=== PATIENT | male | born 1995 | race Caucasian/White ===

== ENCOUNTER 2017-05-22 18:09 | Emergency (ER) | payer MEDICAID, OTHER ==
[~2017-05-22] VITALS: Ht 175.3 cm; Wt 70.0 kg
[~2017-05-22 18:09] MED LIST: ALBU2SYR PO; TEMA15CA5 PO
[2017-05-22] MEDS ORDERED: FLUO-123 PO (18:13)
[2017-05-22] MEDS ORDERED: SERT25TA PO (18:13)
[2017-05-22] MEDS ORDERED: KETOROLAC 30MG/ML VIAL IM ONE (19:30)
[2017-05-22] MEDS ORDERED: IBUPROFEN 600MG TABLET PO ONE (20:15)
[2017-05-22 22:05] VITALS: BP 100/62
== END 2017-05-22 22:35 | disposition home or self-care (01) ==
LOC: ER 18:13
DX: S43.402A Unspecified sprain of left shoulder joint, initial encounter (principal); M25.512 Pain in left shoulder; F17.200 Nicotine dependence, unspecified, uncomplicated; F15.10 Other stimulant abuse, uncomplicated; Y08.89XA Assault by other specified means, initial encounter; Y93.89 Activity, other specified; Y92.89 Other specified places as the place of occurrence of the external cause; Y99.8 Other external cause status
CPT/HCPCS: 73030; 99284; J1885; A4565

== ENCOUNTER 2017-05-26 04:12 | Emergency (ER) | payer MEDICAID, OTHER ==
[~2017-05-26] VITALS: Ht 165.1 cm; Wt 69.0 kg
[~2017-05-26 04:12] MED LIST changes: +FLUO-123 PO; +SERT25TA PO
[2017-05-26] MEDS ORDERED: SODIUM CHLORIDE 0.9% 1,000 ML IV ONE (04:58)
[2017-05-26] MEDS ORDERED: FENTANYL CITRATE/PF 50MCG/ML 2ML VIAL IV ONE (05:00)
[2017-05-26] MEDS ORDERED: ONDANSETRON HCL 4MG/2ML VIAL ONE (05:06)
[2017-05-26] MEDS ORDERED: FENTANYL CITRATE/PF 50MCG/ML 2ML VIAL ONE (05:06)
[2017-05-26] MEDS ORDERED: ETOMIDATE 2MG/ML 10ML VIAL IV ONE (05:30)
[2017-05-26 06:44] VITALS: BP 145/76
== END 2017-05-26 06:45 | disposition home or self-care (01) ==
LOC: ER 04:12
DX: M24.412 Recurrent dislocation, left shoulder (principal); F17.200 Nicotine dependence, unspecified, uncomplicated; F12.10 Cannabis abuse, uncomplicated; Y04.0XXA Assault by unarmed brawl or fight, initial encounter; Y93.89 Activity, other specified; Y92.89 Other specified places as the place of occurrence of the external cause; Y99.8 Other external cause status
CPT/HCPCS: 23650; 73030; 96361; 96374; 99285; J2405; J3010; J3490; Z7610; A4565; J7030; L3670

== ENCOUNTER 2017-09-14 12:59 | Emergency (ER) | payer MEDICAID ==
[~2017-09-14] VITALS: Ht 170.2 cm; Wt 73.0 kg
[2017-09-14] MEDS ORDERED: FENTANYL CITRATE/PF 50MCG/ML 2ML VIAL IV ONE (15:15)
[2017-09-14 15:33] VITALS: BP 122/78
== END 2017-09-14 16:45 | disposition home or self-care (01) ==
LOC: ER 13:01
DX: M24.412 Recurrent dislocation, left shoulder (principal); F32.9 Major depressive disorder, single episode, unspecified; J45.909 Unspecified asthma, uncomplicated; F17.200 Nicotine dependence, unspecified, uncomplicated; F12.10 Cannabis abuse, uncomplicated
CPT/HCPCS: 23650; 73030; 96374; 99284; J3010; L3670

== ENCOUNTER 2018-06-13 09:59 | Emergency (ER) | payer MEDICAID ==
[~2018-06-13] VITALS: Ht 170.2 cm; Wt 70.0 kg
[~2018-06-13 09:59] MED LIST changes: -ALBU2SYR PO; +ALBU2SYR3 PO
[2018-06-13 11:45] VITALS: BP 116/62
[2018-06-13] MEDS ORDERED: IBUPROFEN 400MG TABLET PO ONE (11:45)
[2018-06-13] MEDS ORDERED: HYDROCODONE/ACETAMINOPHEN 5/325MG TABLET PO ONE (11:45)
== END 2018-06-13 14:20 | disposition home or self-care (01) ==
LOC: ER 09:59
DX: S52.021A Displaced fracture of olecranon process without intraarticular extension of right ulna, initial encounter for closed fracture (principal); Y08.89XA Assault by other specified means, initial encounter; Y93.89 Activity, other specified; Y92.89 Other specified places as the place of occurrence of the external cause
CPT/HCPCS: 29105; 73060; 73080; 99284; A4565

== ENCOUNTER 2019-01-02 21:39 | Emergency (ER) | payer MEDICAID ==
[~2019-01-02] VITALS: Ht 177.8 cm; Wt 61.0 kg
[2019-01-02 21:57] VITALS: BP 107/63
== END 2019-01-03 | disposition left against medical advice (07) ==
LOC: ER 21:39
DX: Z53.21 Procedure and treatment not carried out due to patient leaving prior to being seen by health care provider (principal)

== ENCOUNTER 2019-01-13 08:32 | Emergency (ER) | payer MEDICAID ==
[~2019-01-13] VITALS: Ht 170.2 cm; Wt 57.0 kg
[2019-01-13 10:02] VITALS: BP 122/65
== END 2019-01-13 10:09 | disposition home or self-care (01) ==
LOC: ER 08:32
DX: M25.512 Pain in left shoulder (principal); F12.10 Cannabis abuse, uncomplicated; F14.10 Cocaine abuse, uncomplicated; F15.10 Other stimulant abuse, uncomplicated; F20.9 Schizophrenia, unspecified; F31.9 Bipolar disorder, unspecified; Z79.899 Other long term (current) drug therapy
CPT/HCPCS: 99283

== ENCOUNTER 2019-01-16 19:14 | Emergency (ER) | payer MEDICAID ==
[~2019-01-16] VITALS: Ht 167.6 cm; Wt 60.0 kg
[2019-01-17] MEDS: RISPERIDONE 1MG TABLET PO SCH (00:21)
[2019-01-17 00:48] LABS: BASOPHILS % 0.6 % (0.0-2.0); EOSINOPHILS % 5.2 % (0.0-5.0); HEMATOCRIT. 40.4 % (42.0-52.0); LYMPHOCYTES % 26.5 % (20.0-50.0); MEAN CORPUSCULAR HEMOGLOBIN 31.2 pg (28.0-32.0); MEAN CORPUSCULAR VOLUME 90.2 fL (80.0-94.0); MONOCYTES % 11.4 % (2.0-8.0); NEUTROPHILS % 56.3 % (40.0-76.0); PLATELET 182 x1000/uL (130-400); RED BLOOD CELL COUNT 4.48 mill/uL (4.7-6.1); RED CELL DISTRIBUTION WIDTH 13.7 % (11.6-14.6)
[2019-01-17 00:52] LABS: CHLORIDE 111 mEq/L (98-107)
[2019-01-17 00:55] LABS: CLARITY URINE CLEAR (CLEAR); COLOR URINE YELLOW (YELLOW); KETONES URINE TRACE (NEGATIVE); LEUKOCYTE ESTERASE URINE NEGATIVE (NEGATIVE); NITRITE URINE NEGATIVE (NEGATIVE); OCCULT BLOOD URINE NEGATIVE (NEGATIVE); PROTEIN URINE NEGATIVE (NEGATIVE); SPECIFIC GRAVITY URINE 1.031 (1.005-1.030); UROBILINOGEN URINE 0.2 E.U./dL (0.2-1.0)
[2019-01-17 00:57] LABS: ETHANOL BLOOD < 10 mg/dL
[2019-01-17 01:06] LABS: *AMPHETAMINES SCREEN URINE NEGATIVE (NEGATIVE); *BARBITURATES SCREEN URINE NEGATIVE (NEGATIVE); *BENZODIAZEPINES SCREEN URINE NEGATIVE (NEGATIVE); *COCAINE SCREEN URINE NEGATIVE (NEGATIVE); METHADONE URINE SCREEN NEGATIVE (NEGATIVE); OPIATES URINE SCREEN NEGATIVE (NEGATIVE); PHENCYCLIDINE URINE SCREEN NEGATIVE (NEGATIVE)
[2019-01-17 01:08] LABS: CANNABINOID URINE SCREEN PRESUMTIVE POSITIVE (NEGATIVE)
[2019-01-17 08:10] VITALS: BP 124/73
== END 2019-01-17 10:31 | disposition left against medical advice (07) ==
LOC: ER 19:14
DX: F23 Brief psychotic disorder (principal); F31.9 Bipolar disorder, unspecified; F12.10 Cannabis abuse, uncomplicated; F15.10 Other stimulant abuse, uncomplicated; F14.10 Cocaine abuse, uncomplicated; Z79.899 Other long term (current) drug therapy
CPT/HCPCS: 36415; 80305; 80320; 99284; G0480

== ENCOUNTER 2019-01-23 23:47 | Emergency (ER) | payer MEDICAID ==
[~2019-01-23] VITALS: Ht 167.6 cm; Wt 57.0 kg
[2019-01-24 08:49] LABS: BASOPHILS % 0.4 % (0.0-2.0); EOSINOPHILS % 4.5 % (0.0-5.0); HEMATOCRIT. 40.5 % (42.0-52.0); HEMOGLOBIN. 13.8 g/dL (14.0-18.0); LYMPHOCYTES % 31.6 % (20.0-50.0); MEAN CORPUSCULAR HEMOGLOBIN 30.6 pg (28.0-32.0); MEAN CORPUSCULAR VOLUME 89.8 fL (80.0-94.0); MEAN PLATELET VOLUME 7.8 fl (7.4-10.4); MONOCYTES % 9.2 % (2.0-8.0); NEUTROPHILS % 54.3 % (40.0-76.0); PLATELET 217 x1000/uL (130-400); RED BLOOD CELL COUNT 4.51 mill/uL (4.7-6.1); RED CELL DISTRIBUTION WIDTH 13.6 % (11.6-14.6)
[2019-01-24 08:53] LABS: CHLORIDE 110 mEq/L (98-107)
[2019-01-24 10:07] LABS: CLARITY URINE CLEAR (CLEAR); COLOR URINE YELLOW (YELLOW); KETONES URINE NEGATIVE (NEGATIVE); LEUKOCYTE ESTERASE URINE NEGATIVE (NEGATIVE); NITRITE URINE NEGATIVE (NEGATIVE); OCCULT BLOOD URINE NEGATIVE (NEGATIVE); PH URINE 5.5 (4.5-8.0); PROTEIN URINE NEGATIVE (NEGATIVE); SPECIFIC GRAVITY URINE 1.035 (1.005-1.030); UROBILINOGEN URINE 0.2 E.U./dL (0.2-1.0)
[2019-01-24 10:21] LABS: *BARBITURATES SCREEN URINE NEGATIVE (NEGATIVE); CANNABINOID URINE SCREEN PRESUMTIVE POSITIVE (NEGATIVE); OPIATES URINE SCREEN NEGATIVE (NEGATIVE); PHENCYCLIDINE URINE SCREEN NEGATIVE (NEGATIVE)
[2019-01-24 10:22] LABS: *AMPHETAMINES SCREEN URINE NEGATIVE (NEGATIVE); *BENZODIAZEPINES SCREEN URINE NEGATIVE (NEGATIVE); *COCAINE SCREEN URINE NEGATIVE (NEGATIVE)
[2019-01-24 10:25] LABS: METHADONE URINE SCREEN NEGATIVE (NEGATIVE)
[2019-01-24 18:00] VITALS: BP 126/69
== END 2019-01-24 20:27 | disposition home or self-care (01) ==
LOC: ER 23:47
DX: F20.9 Schizophrenia, unspecified (principal); F31.9 Bipolar disorder, unspecified; F14.10 Cocaine abuse, uncomplicated; F15.10 Other stimulant abuse, uncomplicated; F12.10 Cannabis abuse, uncomplicated; F17.210 Nicotine dependence, cigarettes, uncomplicated
CPT/HCPCS: 36415; 80048; 80305; 99285

== ENCOUNTER 2019-02-03 06:37 | Emergency (ER) | payer MEDICAID ==
[~2019-02-03] VITALS: Ht 175.3 cm; Wt 61.0 kg
[2019-02-03] MEDS ORDERED: KETOROLAC 30MG/ML VIAL IM ONE (07:45)
[2019-02-03 08:50] VITALS: BP 129/86
== END 2019-02-03 09:01 | disposition home or self-care (01) ==
LOC: ER 06:37
DX: K08.89 Other specified disorders of teeth and supporting structures (principal); F12.10 Cannabis abuse, uncomplicated; F14.10 Cocaine abuse, uncomplicated; F15.10 Other stimulant abuse, uncomplicated; F31.9 Bipolar disorder, unspecified; F20.9 Schizophrenia, unspecified
CPT/HCPCS: 96372; 99283; J1885

== ENCOUNTER 2019-03-02 21:02 | Emergency (ER) | payer MEDICAID ==
[~2019-03-02] VITALS: Ht 170.2 cm; Wt 57.0 kg
[2019-03-02] MEDS ORDERED: SODIUM CHLORIDE 0.9% 1,000 ML IV ONE (23:45)
[2019-03-02] MEDS ORDERED: ONDANSETRON HCL 4MG/2ML INJ IV STA (23:45)
[2019-03-03 00:17] LABS: BASOPHILS % 0.4 % (0.0-2.0); EOSINOPHILS % 2.3 % (0.0-5.0); HEMATOCRIT. 38.5 % (42.0-52.0); HEMOGLOBIN. 13.4 g/dL (14.0-18.0); LYMPHOCYTES % 33.1 % (20.0-50.0); MEAN CORPUSCULAR HEMOGLOBIN 31.6 pg (28.0-32.0); MEAN CORPUSCULAR VOLUME 90.4 fL (80.0-94.0); MEAN PLATELET VOLUME 8.5 fl (7.4-10.4); MONOCYTES % 8.6 % (2.0-8.0); NEUTROPHILS % 55.6 % (40.0-76.0); PLATELET 198 x1000/uL (130-400); RED BLOOD CELL COUNT 4.25 mill/uL (4.7-6.1); RED CELL DISTRIBUTION WIDTH 13.5 % (11.6-14.6)
[2019-03-03 00:23] LABS: CHLORIDE 109 mEq/L (98-107)
[2019-03-03 00:27] LABS: ETHANOL BLOOD < 10 mg/dL
[2019-03-03 00:31] LABS: CREATINE KINASE 465 IU/L (39-308)
[2019-03-03 00:33] LABS: CLARITY URINE CLEAR (CLEAR); COLOR URINE YELLOW (YELLOW); KETONES URINE NEGATIVE (NEGATIVE); LEUKOCYTE ESTERASE URINE NEGATIVE (NEGATIVE); NITRITE URINE NEGATIVE (NEGATIVE); OCCULT BLOOD URINE NEGATIVE (NEGATIVE); PH URINE 6.5 (4.5-8.0); PROTEIN URINE NEGATIVE (NEGATIVE); SPECIFIC GRAVITY URINE 1.003 (1.005-1.030); UROBILINOGEN URINE 0.2 E.U./dL (0.2-1.0)
[2019-03-03 00:34] LABS: CREATINE KINASE MB FRACTION 5.7 ng/mL (0.5-3.6)
[2019-03-03 03:12] LABS: CANNABINOID URINE SCREEN PRESUMTIVE POSITIVE (NEGATIVE)
[2019-03-03 03:13] LABS: *AMPHETAMINES SCREEN URINE NEGATIVE (NEGATIVE); *BARBITURATES SCREEN URINE NEGATIVE (NEGATIVE); *BENZODIAZEPINES SCREEN URINE NEGATIVE (NEGATIVE); *COCAINE SCREEN URINE NEGATIVE (NEGATIVE); METHADONE URINE SCREEN NEGATIVE (NEGATIVE); OPIATES URINE SCREEN NEGATIVE (NEGATIVE); PHENCYCLIDINE URINE SCREEN NEGATIVE (NEGATIVE)
[2019-03-03 05:40] VITALS: BP 111/66
== END 2019-03-03 05:41 | disposition home or self-care (01) ==
LOC: ER 21:02
DX: T40.7X1A Poisoning by cannabis (derivatives), accidental (unintentional), initial encounter (principal); G92 Toxic encephalopathy; R53.1 Weakness; Y92.89 Other specified places as the place of occurrence of the external cause; F17.200 Nicotine dependence, unspecified, uncomplicated; F14.10 Cocaine abuse, uncomplicated; F15.10 Other stimulant abuse, uncomplicated; F41.9 Anxiety disorder, unspecified; F31.9 Bipolar disorder, unspecified; F20.9 Schizophrenia, unspecified
CPT/HCPCS: 36415; 71045; 80053; 80305; 80320; 81003; 82550; 82553; 83690; 84484; 85025; 93005; 96361; 96374; 99284; J2405; J7030; G0480

== ENCOUNTER 2019-03-09 22:01 | Emergency (ER) | payer MEDICAID ==
[~2019-03-09] VITALS: Ht 170.2 cm; Wt 57.0 kg
[2019-03-10 07:52] VITALS: BP 129/70
== END 2019-03-10 07:49 | disposition home or self-care (01) ==
LOC: ER 22:01
DX: M25.512 Pain in left shoulder (principal); Z79.899 Other long term (current) drug therapy
CPT/HCPCS: 73030; 99283

== ENCOUNTER 2019-04-08 00:17 | Emergency (ER) | payer MEDICAID ==
[~2019-04-08] VITALS: Ht 170.2 cm; Wt 58.0 kg
[2019-04-08 07:25] VITALS: BP 102/59
== END 2019-04-08 08:00 | disposition left against medical advice (07) ==
LOC: ER 00:17
DX: Z76.0 Encounter for issue of repeat prescription (principal); F20.9 Schizophrenia, unspecified; F41.9 Anxiety disorder, unspecified; F12.10 Cannabis abuse, uncomplicated; F17.210 Nicotine dependence, cigarettes, uncomplicated; F31.9 Bipolar disorder, unspecified; Z59.0 Homelessness
CPT/HCPCS: 99283

== ENCOUNTER 2019-04-08 23:36 | Emergency (ER) | payer MEDICAID ==
[~2019-04-08] VITALS: Ht 165.1 cm; Wt 50.0 kg
[2019-04-09] MEDS: SERTRALINE HCL 100MG TABLET PO SCH ×2 (00:30→08:30)
[2019-04-09 00:51] LABS: BASOPHILS % 0.4 % (0.0-2.0); EOSINOPHILS % 2.1 % (0.0-5.0); HEMATOCRIT. 41.5 % (42.0-52.0); HEMOGLOBIN. 14.3 g/dL (14.0-18.0); MEAN CORPUSCULAR HEMOGLOBIN 31.1 pg (28.0-32.0); MEAN CORPUSCULAR VOLUME 89.9 fL (80.0-94.0); MEAN PLATELET VOLUME 8.3 fl (7.4-10.4); MONOCYTES % 5.8 % (2.0-8.0); NEUTROPHILS % 63.7 % (40.0-76.0); PLATELET 192 x1000/uL (130-400); RED BLOOD CELL COUNT 4.61 mill/uL (4.7-6.1); RED CELL DISTRIBUTION WIDTH 13.1 % (11.6-14.6)
[2019-04-09 01:03] LABS: CHLORIDE 108 mEq/L (98-107)
[2019-04-09 01:07] LABS: ETHANOL BLOOD < 10 mg/dL
[2019-04-09] MEDS ORDERED: POTASSIUM CHLORIDE 20MEQ TABLET SR PO ONE (01:30)
[2019-04-09 01:49] LABS: CLARITY URINE CLEAR (CLEAR); COLOR URINE YELLOW (YELLOW); KETONES URINE NEGATIVE (NEGATIVE); LEUKOCYTE ESTERASE URINE NEGATIVE (NEGATIVE); NITRITE URINE NEGATIVE (NEGATIVE); OCCULT BLOOD URINE NEGATIVE (NEGATIVE); PH URINE 5.5 (4.5-8.0); PROTEIN URINE NEGATIVE (NEGATIVE); SPECIFIC GRAVITY URINE 1.022 (1.005-1.030)
[2019-04-09 02:08] LABS: *AMPHETAMINES SCREEN URINE NEGATIVE (NEGATIVE); *BARBITURATES SCREEN URINE NEGATIVE (NEGATIVE); *BENZODIAZEPINES SCREEN URINE NEGATIVE (NEGATIVE); *COCAINE SCREEN URINE NEGATIVE (NEGATIVE)
[2019-04-09 02:09] LABS: CANNABINOID URINE SCREEN PRESUMTIVE POSITIVE (NEGATIVE); METHADONE URINE SCREEN NEGATIVE (NEGATIVE); OPIATES URINE SCREEN NEGATIVE (NEGATIVE); PHENCYCLIDINE URINE SCREEN NEGATIVE (NEGATIVE)
[2019-04-09] MEDS ORDERED: QUETIAPINE FUMARATE 50MG TABLET PO SCH (09:00)
[2019-04-09 13:56] VITALS: BP 128/82
== END 2019-04-09 14:10 | disposition home or self-care (01) ==
LOC: ER 23:36
DX: F20.9 Schizophrenia, unspecified (principal); E87.6 Hypokalemia; F41.9 Anxiety disorder, unspecified; F31.9 Bipolar disorder, unspecified; F17.200 Nicotine dependence, unspecified, uncomplicated; F15.10 Other stimulant abuse, uncomplicated; Z79.899 Other long term (current) drug therapy; Z86.59 Personal history of other mental and behavioral disorders
CPT/HCPCS: 36415; 80053; 80305; 80307; 80320; 80329; 81003; 85025; 99284; Z7610; G0480

== ENCOUNTER 2019-04-20 18:55 | Emergency (ER) | payer MEDICAID ==
[~2019-04-20] VITALS: Ht 172.7 cm; Wt 59.0 kg
[2019-04-20] MEDS ORDERED: RISP05 PO (19:01)
[2019-04-20] MEDS ORDERED: ACETAMINOPHEN 500MG TABLET PO ONE (22:45)
[2019-04-20 23:13] VITALS: BP 103/52
== END 2019-04-21 00:12 | disposition home or self-care (01) ==
LOC: ER 18:55
DX: R51 Headache (principal); F31.9 Bipolar disorder, unspecified; F20.9 Schizophrenia, unspecified; F17.200 Nicotine dependence, unspecified, uncomplicated; F14.10 Cocaine abuse, uncomplicated; F12.10 Cannabis abuse, uncomplicated; F15.10 Other stimulant abuse, uncomplicated; Z79.899 Other long term (current) drug therapy
CPT/HCPCS: 99283

== ENCOUNTER 2019-05-25 20:36 | Emergency (ER) | payer MEDICAID ==
[~2019-05-25] VITALS: Ht 170.2 cm; Wt 56.0 kg
[~2019-05-25 20:36] MED LIST changes: +RISP05 PO
[2019-05-25] MEDS ORDERED: RISPERIDONE 0.5MG TABLET PO STA (22:08)
[2019-05-25] MEDS ORDERED: ACETAMINOPHEN 325MG TABLET PO ONE (22:15)
[2019-05-25 22:19] VITALS: BP 136/60
== END 2019-05-25 22:54 | disposition home or self-care (01) ==
LOC: ER 20:36
DX: Z76.0 Encounter for issue of repeat prescription (principal); G89.29 Other chronic pain; F15.10 Other stimulant abuse, uncomplicated; F20.9 Schizophrenia, unspecified; F41.9 Anxiety disorder, unspecified; F12.10 Cannabis abuse, uncomplicated
CPT/HCPCS: 99283

== ENCOUNTER 2019-05-30 18:10 | Emergency (ER) | payer MEDICAID ==
[~2019-05-30] VITALS: Ht 167.6 cm; Wt 55.0 kg
[2019-05-30] MEDS ORDERED: SODIUM CHLORIDE 0.9% 1,000 ML IV ONE (22:11)
[2019-05-30] MEDS ORDERED: ONDANSETRON HCL 4MG/2ML INJ IV STA (22:11)
[2019-05-30] MEDS ORDERED: FAMOTIDINE 20MG/2ML VIAL IV ONE (22:15)
[2019-05-30] MEDS ORDERED: MAGNESIUM/ALUMINUM HYDROXIDE/SIMETHICONE 30ML UDC PO ONE (22:15)
[2019-05-30 22:31] LABS: BASOPHILS % 0.2 % (0.0-2.0); EOSINOPHILS % 0.5 % (0.0-5.0); HEMATOCRIT. 39.7 % (42.0-52.0); HEMOGLOBIN. 13.8 g/dL (14.0-18.0); LYMPHOCYTES % 15.6 % (20.0-50.0); MEAN CORPUSCULAR HEMOGLOBIN 30.8 pg (28.0-32.0); MEAN CORPUSCULAR VOLUME 88.3 fL (80.0-94.0); NEUTROPHILS % 76.7 % (40.0-76.0); PLATELET 222 x1000/uL (130-400); RED BLOOD CELL COUNT 4.49 mill/uL (4.7-6.1); RED CELL DISTRIBUTION WIDTH 12.9 % (11.6-14.6)
[2019-05-30 22:36] LABS: CHLORIDE 104 mEq/L (98-107)
[2019-05-30 22:40] LABS: ETHANOL BLOOD < 10 mg/dL
[2019-05-30 22:57] LABS: *AMPHETAMINES SCREEN URINE NEGATIVE (NEGATIVE); *BARBITURATES SCREEN URINE NEGATIVE (NEGATIVE); *BENZODIAZEPINES SCREEN URINE NEGATIVE (NEGATIVE); *COCAINE SCREEN URINE NEGATIVE (NEGATIVE); METHADONE URINE SCREEN NEGATIVE (NEGATIVE); OPIATES URINE SCREEN NEGATIVE (NEGATIVE)
[2019-05-30 22:59] LABS: CANNABINOID URINE SCREEN PRESUMTIVE POSITIVE (NEGATIVE); PHENCYCLIDINE URINE SCREEN NEGATIVE (NEGATIVE)
[2019-05-31 00:09] VITALS: BP 102/66
== END 2019-05-31 01:58 | disposition left against medical advice (07) ==
LOC: ER 18:10
DX: R10.13 Epigastric pain (principal); K85.90 Acute pancreatitis without necrosis or infection, unspecified; F41.9 Anxiety disorder, unspecified; F20.9 Schizophrenia, unspecified; F15.10 Other stimulant abuse, uncomplicated; F12.10 Cannabis abuse, uncomplicated; Z59.0 Homelessness
CPT/HCPCS: 36415; 76700; 80053; 80305; 80320; 83690; 84484; 85025; 96361; 96374; 96375; 99284; J2405; J3490; J7030; Z7610; G0480

== ENCOUNTER 2019-06-13 13:51 | Emergency (ER) | payer MEDICAID ==
[~2019-06-13] VITALS: Ht 175.3 cm; Wt 65.0 kg
[2019-06-13 16:00] VITALS: BP 101/60
== END 2019-06-13 16:56 | disposition home or self-care (01) ==
LOC: ER 14:03
DX: F10.229 Alcohol dependence with intoxication, unspecified (principal); F12.10 Cannabis abuse, uncomplicated; F15.10 Other stimulant abuse, uncomplicated; F41.9 Anxiety disorder, unspecified; F20.9 Schizophrenia, unspecified; F31.9 Bipolar disorder, unspecified; F17.210 Nicotine dependence, cigarettes, uncomplicated; Z79.899 Other long term (current) drug therapy; Y90.9 Presence of alcohol in blood, level not specified
CPT/HCPCS: 99283; 99406

== ENCOUNTER 2019-06-21 23:42 | Emergency (ER) | payer MEDICAID ==
[~2019-06-21] VITALS: Ht 170.2 cm; Wt 57.0 kg
[2019-06-22 00:19] VITALS: BP 102/56
== END 2019-06-22 00:30 | disposition left against medical advice (07) ==
LOC: ER 23:42
DX: Z53.21 Procedure and treatment not carried out due to patient leaving prior to being seen by health care provider (principal)

== ENCOUNTER 2019-06-22 16:07 | Emergency (ER) | payer MEDICAID ==
[~2019-06-22] VITALS: Ht 170.2 cm; Wt 57.0 kg
[2019-06-22] MEDS ORDERED: ONDANSETRON HCL 4MG/2ML INJ IV STA (23:21)
[2019-06-22] MEDS ORDERED: MAGNESIUM/ALUMINUM HYDROXIDE/SIMETHICONE 30ML UDC PO STA (23:21)
[2019-06-22] MEDS ORDERED: SODIUM CHLORIDE 0.9% 1,000 ML IV ONE (23:21)
[2019-06-22] MEDS ORDERED: FAMOTIDINE 20MG/2ML VIAL IV STA (23:21)
[2019-06-22 23:39] LABS: BASOPHILS % 0.9 % (0.0-2.0); EOSINOPHILS % 5.3 % (0.0-5.0); HEMATOCRIT. 38.2 % (42.0-52.0); LYMPHOCYTES % 36.6 % (20.0-50.0); MEAN CORPUSCULAR HEMOGLOBIN 30.6 pg (28.0-32.0); MEAN CORPUSCULAR VOLUME 89.8 fL (80.0-94.0); MEAN PLATELET VOLUME 7.8 fl (7.4-10.4); MONOCYTES % 6.6 % (2.0-8.0); NEUTROPHILS % 50.6 % (40.0-76.0); PLATELET 208 x1000/uL (130-400); RED BLOOD CELL COUNT 4.25 mill/uL (4.7-6.1); RED CELL DISTRIBUTION WIDTH 13.4 % (11.6-14.6)
[2019-06-22 23:41] LABS: CHLORIDE 110 mEq/L (98-107)
[2019-06-22 23:46] LABS: ETHANOL BLOOD < 10 mg/dL
[2019-06-22 23:53] LABS: PROTHROMBIN TIME 10.5 sec (9.6-11.0)
[2019-06-23 03:08] LABS: CLARITY URINE CLEAR (CLEAR); COLOR URINE YELLOW (YELLOW); KETONES URINE NEGATIVE (NEGATIVE); LEUKOCYTE ESTERASE URINE NEGATIVE (NEGATIVE); NITRITE URINE NEGATIVE (NEGATIVE); OCCULT BLOOD URINE NEGATIVE (NEGATIVE); PH URINE 7.5 (4.5-8.0); PROTEIN URINE NEGATIVE (NEGATIVE); SPECIFIC GRAVITY URINE 1.016 (1.005-1.030); UROBILINOGEN URINE 0.2 E.U./dL (0.2-1.0)
[2019-06-23 03:18] LABS: *AMPHETAMINES SCREEN URINE NEGATIVE (NEGATIVE); *BARBITURATES SCREEN URINE NEGATIVE (NEGATIVE); *BENZODIAZEPINES SCREEN URINE NEGATIVE (NEGATIVE); *COCAINE SCREEN URINE NEGATIVE (NEGATIVE); OPIATES URINE SCREEN NEGATIVE (NEGATIVE); PHENCYCLIDINE URINE SCREEN NEGATIVE (NEGATIVE)
[2019-06-23 03:19] LABS: CANNABINOID URINE SCREEN PRESUMTIVE POSITIVE (NEGATIVE); METHADONE URINE SCREEN NEGATIVE (NEGATIVE)
[2019-06-23 09:55] VITALS: BP 108/67
== END 2019-06-23 09:55 | disposition home or self-care (01) ==
LOC: ER 16:07
DX: K29.70 Gastritis, unspecified, without bleeding (principal); J45.909 Unspecified asthma, uncomplicated; F17.210 Nicotine dependence, cigarettes, uncomplicated; F15.10 Other stimulant abuse, uncomplicated; F12.10 Cannabis abuse, uncomplicated; F14.10 Cocaine abuse, uncomplicated; F17.200 Nicotine dependence, unspecified, uncomplicated; Z79.899 Other long term (current) drug therapy; Z59.0 Homelessness
CPT/HCPCS: 36415; 74018; 80053; 80305; 80320; 81003; 83690; 84484; 85025; 85610; 96361; 96374; 96375; 99284; 99406; J2405; J7030; Z7610; G0480

== ENCOUNTER 2019-06-24 02:12 | Emergency (ER) | payer MEDICAID ==
[~2019-06-24] VITALS: Ht 170.2 cm; Wt 57.0 kg
[2019-06-24] MEDS ORDERED: LORAZEPAM 1MG TABLET PO ONE (03:00)
[2019-06-24 03:32] LABS: CLARITY URINE CLEAR (CLEAR); COLOR URINE YELLOW (YELLOW); KETONES URINE NEGATIVE (NEGATIVE); LEUKOCYTE ESTERASE URINE NEGATIVE (NEGATIVE); NITRITE URINE NEGATIVE (NEGATIVE); OCCULT BLOOD URINE NEGATIVE (NEGATIVE); PH URINE 5.5 (4.5-8.0); PROTEIN URINE NEGATIVE (NEGATIVE); SPECIFIC GRAVITY URINE 1.017 (1.005-1.030); UROBILINOGEN URINE 0.2 E.U./dL (0.2-1.0)
[2019-06-24 03:35] LABS: BASOPHILS % 0.4 % (0.0-2.0); EOSINOPHILS % 2.8 % (0.0-5.0); HEMATOCRIT. 39.2 % (42.0-52.0); HEMOGLOBIN. 13.5 g/dL (14.0-18.0); LYMPHOCYTES % 26.8 % (20.0-50.0); MEAN CORPUSCULAR HEMOGLOBIN 30.8 pg (28.0-32.0); MEAN CORPUSCULAR VOLUME 89.7 fL (80.0-94.0); MEAN PLATELET VOLUME 8.2 fl (7.4-10.4); PLATELET 218 x1000/uL (130-400); RED BLOOD CELL COUNT 4.37 mill/uL (4.7-6.1); RED CELL DISTRIBUTION WIDTH 13.5 % (11.6-14.6)
[2019-06-24 03:38] LABS: CHLORIDE 110 mEq/L (98-107)
[2019-06-24 03:41] LABS: *AMPHETAMINES SCREEN URINE NEGATIVE (NEGATIVE); *BARBITURATES SCREEN URINE NEGATIVE (NEGATIVE); *BENZODIAZEPINES SCREEN URINE NEGATIVE (NEGATIVE); *COCAINE SCREEN URINE NEGATIVE (NEGATIVE); METHADONE URINE SCREEN NEGATIVE (NEGATIVE)
[2019-06-24 03:42] LABS: CANNABINOID URINE SCREEN PRESUMTIVE POSITIVE (NEGATIVE); OPIATES URINE SCREEN NEGATIVE (NEGATIVE); PHENCYCLIDINE URINE SCREEN NEGATIVE (NEGATIVE)
[2019-06-24 03:42] LABS: ETHANOL BLOOD < 10 mg/dL
[2019-06-24 12:00] VITALS: BP 116/80
== END 2019-06-24 12:56 | disposition home or self-care (01) ==
LOC: ER 02:12
DX: R45.851 Suicidal ideations (principal); D64.9 Anemia, unspecified; F12.90 Cannabis use, unspecified, uncomplicated; R03.0 Elevated blood-pressure reading, without diagnosis of hypertension
CPT/HCPCS: 36415; 80305; 80307; 80320; 80329; 81003; 82962; 99283; G0480

== ENCOUNTER 2019-06-24 19:52 | Emergency (ER) | payer MEDICAID ==
[~2019-06-24] VITALS: Ht 172.7 cm; Wt 58.0 kg
[2019-06-24 21:54] LABS: BASOPHILS % 0.5 % (0.0-2.0); EOSINOPHILS % 4.1 % (0.0-5.0); HEMATOCRIT. 39.2 % (42.0-52.0); HEMOGLOBIN. 13.5 g/dL (14.0-18.0); LYMPHOCYTES % 24.6 % (20.0-50.0); MEAN CORPUSCULAR HEMOGLOBIN 30.6 pg (28.0-32.0); MEAN CORPUSCULAR VOLUME 88.8 fL (80.0-94.0); MEAN PLATELET VOLUME 8.1 fl (7.4-10.4); MONOCYTES % 5.9 % (2.0-8.0); NEUTROPHILS % 64.9 % (40.0-76.0); PLATELET 228 x1000/uL (130-400); RED BLOOD CELL COUNT 4.42 mill/uL (4.7-6.1); RED CELL DISTRIBUTION WIDTH 13.2 % (11.6-14.6)
[2019-06-24 22:04] LABS: CHLORIDE 109 mEq/L (98-107)
[2019-06-24] MEDS ORDERED: LORAZEPAM 1MG TABLET PO ONE (22:30)
[2019-06-24 22:36] LABS: ETHANOL BLOOD < 10 mg/dL
[2019-06-24] MEDS ORDERED: HALOPERIDOL LACTATE 5MG/ML VIAL IM ONE (22:45)
[2019-06-24 22:58] LABS: *AMPHETAMINES SCREEN URINE NEGATIVE (NEGATIVE); *BARBITURATES SCREEN URINE NEGATIVE (NEGATIVE); *BENZODIAZEPINES SCREEN URINE NEGATIVE (NEGATIVE); *COCAINE SCREEN URINE NEGATIVE (NEGATIVE)
[2019-06-24 22:59] LABS: CANNABINOID URINE SCREEN PRESUMTIVE POSITIVE (NEGATIVE); METHADONE URINE SCREEN NEGATIVE (NEGATIVE); OPIATES URINE SCREEN NEGATIVE (NEGATIVE); PHENCYCLIDINE URINE SCREEN NEGATIVE (NEGATIVE)
[2019-06-25 13:50] VITALS: BP 113/79
== END 2019-06-25 18:01 | disposition home or self-care (01) ==
LOC: ER 20:14
DX: R45.851 Suicidal ideations (principal); R55 Syncope and collapse; F12.10 Cannabis abuse, uncomplicated; F41.9 Anxiety disorder, unspecified; F31.9 Bipolar disorder, unspecified; J45.909 Unspecified asthma, uncomplicated; F20.9 Schizophrenia, unspecified; F17.200 Nicotine dependence, unspecified, uncomplicated; Z79.899 Other long term (current) drug therapy
CPT/HCPCS: 36415; 80053; 80305; 80307; 80320; 80329; 83735; 84484; 85025; 93005; 96372; 99284; J1630; G0480

== ENCOUNTER 2019-07-07 18:12 | Emergency (ER) | payer MEDICAID ==
[~2019-07-07] VITALS: Ht 170.2 cm; Wt 59.0 kg
[2019-07-08 01:06] LABS: BASOPHILS % 0.5 % (0.0-2.0); EOSINOPHILS % 3.6 % (0.0-5.0); HEMATOCRIT. 40.1 % (42.0-52.0); HEMOGLOBIN. 13.7 g/dL (14.0-18.0); LYMPHOCYTES % 38.5 % (20.0-50.0); MEAN CORPUSCULAR HEMOGLOBIN 30.6 pg (28.0-32.0); MEAN CORPUSCULAR VOLUME 89.4 fL (80.0-94.0); MEAN PLATELET VOLUME 8.1 fl (7.4-10.4); MONOCYTES % 8.6 % (2.0-8.0); NEUTROPHILS % 48.8 % (40.0-76.0); PLATELET 212 x1000/uL (130-400); RED BLOOD CELL COUNT 4.49 mill/uL (4.7-6.1); RED CELL DISTRIBUTION WIDTH 13.1 % (11.6-14.6)
[2019-07-08 01:18] LABS: CHLORIDE 105 mEq/L (98-107)
[2019-07-08 01:25] LABS: ETHANOL BLOOD < 10 mg/dL
[2019-07-08 01:26] LABS: CLARITY URINE CLEAR (CLEAR); COLOR URINE YELLOW (YELLOW); KETONES URINE NEGATIVE (NEGATIVE); LEUKOCYTE ESTERASE URINE NEGATIVE (NEGATIVE); NITRITE URINE NEGATIVE (NEGATIVE); OCCULT BLOOD URINE NEGATIVE (NEGATIVE); PH URINE 6.5 (4.5-8.0); PROTEIN URINE NEGATIVE (NEGATIVE); SPECIFIC GRAVITY URINE 1.013 (1.005-1.030); UROBILINOGEN URINE 0.2 E.U./dL (0.2-1.0)
[2019-07-08 01:40] LABS: *BARBITURATES SCREEN URINE NEGATIVE (NEGATIVE); *BENZODIAZEPINES SCREEN URINE NEGATIVE (NEGATIVE); *COCAINE SCREEN URINE NEGATIVE (NEGATIVE)
[2019-07-08 01:41] LABS: *AMPHETAMINES SCREEN URINE PRESUMTIVE POSITIVE (NEGATIVE); CANNABINOID URINE SCREEN PRESUMTIVE POSITIVE (NEGATIVE); METHADONE URINE SCREEN NEGATIVE (NEGATIVE); OPIATES URINE SCREEN NEGATIVE (NEGATIVE); PHENCYCLIDINE URINE SCREEN NEGATIVE (NEGATIVE)
[2019-07-08 14:00] VITALS: BP 118/80
== END 2019-07-08 14:03 | disposition home or self-care (01) ==
LOC: ER 18:12
DX: F15.151 Other stimulant abuse with stimulant-induced psychotic disorder with hallucinations (principal); F12.151 Cannabis abuse with psychotic disorder with hallucinations; R45.851 Suicidal ideations; Z86.59 Personal history of other mental and behavioral disorders; Z59.0 Homelessness
CPT/HCPCS: 36415; 80305; 80320; 81003; 99285; G0480

== ENCOUNTER 2019-07-27 01:26 | Emergency (ER) | payer MEDICAID ==
[~2019-07-27] VITALS: Ht 165.1 cm; Wt 64.0 kg
[2019-07-27 01:35] VITALS: BP 143/86
== END 2019-07-27 02:13 | disposition left against medical advice (07) ==
LOC: ER 01:45
DX: Z53.21 Procedure and treatment not carried out due to patient leaving prior to being seen by health care provider (principal)

== ENCOUNTER 2019-08-10 17:17 | Emergency (ER) | payer MEDICAID ==
[2019-08-11 06:32] LABS: BASOPHILS % 0.5 % (0.0-2.0); EOSINOPHILS % 3.5 % (0.0-5.0); HEMOGLOBIN. 13.4 g/dL (14.0-18.0); LYMPHOCYTES % 21.8 % (20.0-50.0); MEAN CORPUSCULAR HEMOGLOBIN 30.4 pg (28.0-32.0); MEAN CORPUSCULAR VOLUME 90.6 fL (80.0-94.0); MEAN PLATELET VOLUME 7.7 fl (7.4-10.4); MONOCYTES % 8.9 % (2.0-8.0); NEUTROPHILS % 65.3 % (40.0-76.0); PLATELET 268 x1000/uL (130-400); RED BLOOD CELL COUNT 4.41 mill/uL (4.7-6.1); RED CELL DISTRIBUTION WIDTH 13.4 % (11.6-14.6)
[2019-08-11 06:44] LABS: CHLORIDE 110 mEq/L (98-107)
[2019-08-11] MEDS: FAMOTIDINE 20MG TABLET PO ONE (07:01)
[2019-08-11] MEDS: ONDANSETRON 4MG ODT PO ONE (07:01)
[2019-08-11] MEDS: IBUPROFEN 600MG TABLET PO ONE (07:01)
[2019-08-11 07:03] LABS: CLARITY URINE CLEAR (CLEAR); COLOR URINE YELLOW (YELLOW); KETONES URINE NEGATIVE (NEGATIVE); LEUKOCYTE ESTERASE URINE NEGATIVE (NEGATIVE); NITRITE URINE NEGATIVE (NEGATIVE); OCCULT BLOOD URINE NEGATIVE (NEGATIVE); PH URINE 5.5 (4.5-8.0); PROTEIN URINE NEGATIVE (NEGATIVE); SPECIFIC GRAVITY URINE 1.004 (1.005-1.030); UROBILINOGEN URINE 0.2 E.U./dL (0.2-1.0)
[2019-08-11 07:27] VITALS: BP 114/68
== END 2019-08-11 07:50 | disposition home or self-care (01) ==
LOC: ER 17:17
DX: R10.13 Epigastric pain (principal); R11.2 Nausea with vomiting, unspecified; F41.9 Anxiety disorder, unspecified; J45.909 Unspecified asthma, uncomplicated; F17.290 Nicotine dependence, other tobacco product, uncomplicated; F12.10 Cannabis abuse, uncomplicated; Z79.899 Other long term (current) drug therapy
CPT/HCPCS: 36415; 80053; 81003; 83690; 85025; 99284; Q0162

== ENCOUNTER 2019-08-13 07:04 | Emergency (ER) | payer MEDICAID ==
[~2019-08-13] VITALS: Ht 170.2 cm; Wt 55.0 kg
[~2019-08-13 07:04] MED LIST changes: -FLUO-123 PO; +FLUO10CA26 PO
[2019-08-13] MEDS ORDERED: ETOMIDATE 2MG/ML 10ML VIAL IV ONE (07:45)
[2019-08-13] MEDS ORDERED: MORPHINE SULFATE 4 MG/ML CPJ (NOT FOR IM USE) IV ONE (07:45)
[2019-08-13 11:42] VITALS: BP 122/59
== END 2019-08-13 11:53 | disposition home or self-care (01) ==
LOC: ER 07:12
DX: S43.004A Unspecified dislocation of right shoulder joint, initial encounter (principal); J45.909 Unspecified asthma, uncomplicated; F12.10 Cannabis abuse, uncomplicated; Y04.0XXA Assault by unarmed brawl or fight, initial encounter; Y93.89 Activity, other specified; Y92.89 Other specified places as the place of occurrence of the external cause; Y99.8 Other external cause status; Z79.899 Other long term (current) drug therapy
CPT/HCPCS: 23650; 73030; 96374; 99285; J2270; J3490; Z7610; 96375; 99152

== ENCOUNTER 2019-08-28 18:03 | Emergency (ER) | payer MEDICAID ==
[~2019-08-28] VITALS: Ht 170.2 cm; Wt 58.0 kg
[2019-08-28] MEDS ORDERED: KETOROLAC 60MG/2ML VIAL IM ONE (22:45)
[2019-08-28 23:18] VITALS: BP 115/84
== END 2019-08-28 23:19 | disposition home or self-care (01) ==
LOC: ER 18:14
DX: S06.9X1A Unspecified intracranial injury with loss of consciousness of 30 minutes or less, initial encounter (principal); S02.2XXA Fracture of nasal bones, initial encounter for closed fracture; Y04.2XXA Assault by strike against or bumped into by another person, initial encounter; Y93.89 Activity, other specified; Y92.89 Other specified places as the place of occurrence of the external cause; F17.210 Nicotine dependence, cigarettes, uncomplicated; F12.90 Cannabis use, unspecified, uncomplicated; Z71.6 Tobacco abuse counseling
CPT/HCPCS: 70450; 70486; 96372; 99284; 99406; J1885

== ENCOUNTER 2019-09-02 17:33 | Emergency (ER) | payer MEDICAID ==
[~2019-09-02] VITALS: Ht 167.6 cm; Wt 55.0 kg
[2019-09-02] MEDS ORDERED: MAGNESIUM/ALUMINUM HYDROXIDE/SIMETHICONE 30ML UDC PO STA (22:05)
[2019-09-02] MEDS ORDERED: VISCOUS LIDOCAINE 2% 15 ML UDC PO STA (22:05)
[2019-09-03 08:29] VITALS: BP 110/66
== END 2019-09-03 09:00 | disposition home or self-care (01) ==
LOC: ER 17:33
DX: K29.70 Gastritis, unspecified, without bleeding (principal); J45.909 Unspecified asthma, uncomplicated; F20.9 Schizophrenia, unspecified; Z59.0 Homelessness; Z79.899 Other long term (current) drug therapy
CPT/HCPCS: 99283

== ENCOUNTER 2019-09-10 10:34 | Emergency (ER) | payer MEDICAID ==
[~2019-09-10] VITALS: Ht 160 cm; Wt 60.0 kg
[2019-09-10 16:25] VITALS: BP 106/65
== END 2019-09-11 01:31 | disposition left against medical advice (07) ==
LOC: ER 10:51
DX: Z53.21 Procedure and treatment not carried out due to patient leaving prior to being seen by health care provider (principal)

== ENCOUNTER 2019-09-11 18:34 | Emergency (ER) | payer MEDICAID ==
[~2019-09-11] VITALS: Ht 170.2 cm; Wt 64.0 kg
[2019-09-11 20:50] LABS: CLARITY URINE CLEAR (CLEAR); COLOR URINE YELLOW (YELLOW); KETONES URINE NEGATIVE (NEGATIVE); LEUKOCYTE ESTERASE URINE NEGATIVE (NEGATIVE); NITRITE URINE NEGATIVE (NEGATIVE); OCCULT BLOOD URINE NEGATIVE (NEGATIVE); PROTEIN URINE NEGATIVE (NEGATIVE); SPECIFIC GRAVITY URINE 1.008 (1.005-1.030); UROBILINOGEN URINE 0.2 E.U./dL (0.2-1.0)
[2019-09-11 20:57] LABS: BASOPHILS % 0.4 % (0.0-2.0); EOSINOPHILS % 2.4 % (0.0-5.0); HEMOGLOBIN. 14.1 g/dL (14.0-18.0); LYMPHOCYTES % 24.5 % (20.0-50.0); MEAN CORPUSCULAR HEMOGLOBIN 29.8 pg (28.0-32.0); MEAN CORPUSCULAR VOLUME 88.7 fL (80.0-94.0); MEAN PLATELET VOLUME 7.8 fl (7.4-10.4); MONOCYTES % 8.5 % (2.0-8.0); NEUTROPHILS % 64.2 % (40.0-76.0); PLATELET 227 x1000/uL (130-400); RED BLOOD CELL COUNT 4.73 mill/uL (4.7-6.1); RED CELL DISTRIBUTION WIDTH 13.2 % (11.6-14.6)
[2019-09-11 21:01] LABS: CHLORIDE 110 mEq/L (98-107)
[2019-09-11 21:04] LABS: ETHANOL BLOOD < 10 mg/dL
[2019-09-11 21:05] LABS: *AMPHETAMINES SCREEN URINE PRESUMTIVE POSITIVE (NEGATIVE); *BARBITURATES SCREEN URINE NEGATIVE (NEGATIVE); *BENZODIAZEPINES SCREEN URINE NEGATIVE (NEGATIVE); *COCAINE SCREEN URINE NEGATIVE (NEGATIVE)
[2019-09-11 21:06] LABS: CANNABINOID URINE SCREEN PRESUMTIVE POSITIVE (NEGATIVE); METHADONE URINE SCREEN NEGATIVE (NEGATIVE); OPIATES URINE SCREEN NEGATIVE (NEGATIVE); PHENCYCLIDINE URINE SCREEN NEGATIVE (NEGATIVE)
[2019-09-12] MEDS ORDERED: OLANZAPINE 5MG TABLET PO STA (06:35)
[2019-09-12 13:18] VITALS: BP 123/85
== END 2019-09-12 13:18 | disposition home or self-care (01) ==
LOC: ER 18:34
DX: R45.851 Suicidal ideations (principal); F23 Brief psychotic disorder; E87.6 Hypokalemia; E88.09 Other disorders of plasma-protein metabolism, not elsewhere classified; F19.10 Other psychoactive substance abuse, uncomplicated; J45.909 Unspecified asthma, uncomplicated; F12.10 Cannabis abuse, uncomplicated; F15.20 Other stimulant dependence, uncomplicated; Z79.899 Other long term (current) drug therapy
CPT/HCPCS: 36415; 80053; 80305; 80320; 81003; 85025; 99285; G0480

== ENCOUNTER 2019-09-16 15:14 | Emergency (ER) | payer MEDICAID ==
[~2019-09-16] VITALS: Ht 172.7 cm; Wt 60.0 kg
[2019-09-16 23:20] VITALS: BP 115/75
== END 2019-09-16 23:21 | disposition home or self-care (01) ==
LOC: ER 15:14
DX: S69.82XA Other specified injuries of left wrist, hand and finger(s), initial encounter (principal); Y04.0XXA Assault by unarmed brawl or fight, initial encounter; Y93.89 Activity, other specified; Y92.018 Other place in single-family (private) house as the place of occurrence of the external cause
CPT/HCPCS: 29125; 73130; 99283

== ENCOUNTER 2019-10-24 15:17 | Emergency (ER) | payer MEDICAID ==
[~2019-10-24] VITALS: Ht 175.3 cm; Wt 62.0 kg
[2019-10-24 16:04] VITALS: BP 143/65
== END 2019-10-24 18:46 | disposition left against medical advice (07) ==
LOC: ER 15:17
DX: R10.9 Unspecified abdominal pain (principal); Z53.21 Procedure and treatment not carried out due to patient leaving prior to being seen by health care provider

== ENCOUNTER 2019-10-30 09:51 | Emergency (ER) | payer MEDICAID ==
[~2019-10-30] VITALS: Ht 167.6 cm; Wt 57.0 kg
[2019-10-30] MEDS ORDERED: SODIUM CHLORIDE 0.9% 1,000 ML IV ONE (12:25)
[2019-10-30] MEDS ORDERED: KETOROLAC 30MG/ML VIAL IV STA (12:25)
[2019-10-30] MEDS ORDERED: ACETAMINOPHEN 500MG TABLET PO ONE (12:30)
[2019-10-30 12:55] LABS: BASOPHILS % 0.3 % (0.0-2.0); HEMATOCRIT. 41.4 % (42.0-52.0); HEMOGLOBIN. 14.3 g/dL (14.0-18.0); LYMPHOCYTES % 22.8 % (20.0-50.0); MEAN CORPUSCULAR HEMOGLOBIN 30.6 pg (28.0-32.0); MEAN CORPUSCULAR VOLUME 88.6 fL (80.0-94.0); MEAN PLATELET VOLUME 7.7 fl (7.4-10.4); MONOCYTES % 7.7 % (2.0-8.0); NEUTROPHILS % 67.2 % (40.0-76.0); PLATELET 225 x1000/uL (130-400); RED BLOOD CELL COUNT 4.67 mill/uL (4.7-6.1)
[2019-10-30 13:08] LABS: CHLORIDE 106 mEq/L (98-107)
[2019-10-30 14:36] LABS: CLARITY URINE CLEAR (CLEAR); COLOR URINE YELLOW (YELLOW); KETONES URINE TRACE (NEGATIVE); LEUKOCYTE ESTERASE URINE NEGATIVE (NEGATIVE); NITRITE URINE NEGATIVE (NEGATIVE); OCCULT BLOOD URINE NEGATIVE (NEGATIVE); PROTEIN URINE NEGATIVE (NEGATIVE); SPECIFIC GRAVITY URINE 1.038 (1.005-1.030); UROBILINOGEN URINE 0.2 E.U./dL (0.2-1.0)
[2019-10-30 17:37] VITALS: BP 111/58
== END 2019-10-30 19:41 | disposition home or self-care (01) ==
LOC: ER 09:51
DX: R51 Headache (principal); R50.9 Fever, unspecified; J02.9 Acute pharyngitis, unspecified
CPT/HCPCS: 36415; 71045; 80053; 81003; 85025; 87804; 96374; 99284; J1885; J7030

== ENCOUNTER 2019-11-07 06:24 | Emergency (ER) | payer MEDICAID ==
[~2019-11-07] VITALS: Ht 170.2 cm; Wt 56.0 kg
[2019-11-07] MEDS ORDERED: ACETAMINOPHEN 325MG TABLET PO ONE (07:15)
[2019-11-07 07:55] VITALS: BP 111/81
== END 2019-11-07 08:01 | disposition home or self-care (01) ==
LOC: ER 06:24
DX: K02.9 Dental caries, unspecified (principal); J45.909 Unspecified asthma, uncomplicated; F20.9 Schizophrenia, unspecified; Z59.0 Homelessness; Z79.899 Other long term (current) drug therapy
CPT/HCPCS: 99282

== ENCOUNTER 2019-11-13 18:32 | Emergency (ER) | payer MEDICAID ==
[~2019-11-13] VITALS: Ht 170.2 cm; Wt 61.0 kg
[2019-11-13 20:50] VITALS: BP 122/63
== END 2019-11-13 21:17 | disposition home or self-care (01) ==
LOC: ER 18:32
DX: Z59.0 Homelessness (principal)
CPT/HCPCS: 99282

== ENCOUNTER 2019-11-17 17:22 | Inpatient (IN) | payer MEDICAID ==
[~2019-11-17] VITALS: Ht 167.6 cm; Wt 57.6 kg
[2019-11-17] MEDS ORDERED: PIPERACILLIN/TAZ 3.375G PREMIX 50 ML IV ONE (18:00)
[2019-11-17] MEDS ORDERED: MORPHINE SULFATE 2 MG/ML CPJ (NOT FOR IM USE) IV ONE (18:00)
[2019-11-17] MEDS ORDERED: VANCOMYCIN 1 G PREMIX 200 ML IV ONE (18:00)
[2019-11-17] MEDS ORDERED: ACETAMINOPHEN 650MG/20.3ML UDC PO ONE (18:00)
[2019-11-17] MEDS ORDERED: SODIUM CHLORIDE 0.9% 1000ML BAG (SEPSIS BOLUS) IV ONE (18:00)
[2019-11-17 19:29] LABS: BASOPHILS % 0.2 % (0.0-2.0); EOSINOPHILS % 0.4 % (0.0-5.0); HEMATOCRIT. 41.8 % (42.0-52.0); HEMOGLOBIN. 14.3 g/dL (14.0-18.0); LYMPHOCYTES % 14.8 % (20.0-50.0); MEAN CORPUSCULAR HEMOGLOBIN 30.2 pg (28.0-32.0); MEAN CORPUSCULAR VOLUME 88.4 fL (80.0-94.0); MEAN PLATELET VOLUME 8.1 fl (7.4-10.4); MONOCYTES % 12.8 % (2.0-8.0); NEUTROPHILS % 71.8 % (40.0-76.0); PLATELET 208 x1000/uL (130-400); RED BLOOD CELL COUNT 4.72 mill/uL (4.7-6.1); RED CELL DISTRIBUTION WIDTH 13.6 % (11.6-14.6)
[2019-11-17 19:31] LABS: CHLORIDE 99 mEq/L (98-107); INR 0.9
[2019-11-17] MEDS ORDERED: LIDOCAINE HCL 1% 20ML VIAL (Pyxis) INJ ONE (22:38)
[2019-11-17 22:48] LABS: CLARITY URINE CLEAR (CLEAR); COLOR URINE YELLOW (YELLOW); KETONES URINE NEGATIVE (NEGATIVE); LEUKOCYTE ESTERASE URINE NEGATIVE (NEGATIVE); NITRITE URINE NEGATIVE (NEGATIVE); OCCULT BLOOD URINE NEGATIVE (NEGATIVE); PROTEIN URINE NEGATIVE (NEGATIVE); SPECIFIC GRAVITY URINE 1.019 (1.005-1.030)
[2019-11-17] MEDS ORDERED: SODIUM CHLORIDE 0.9% 1,000 ML IV ONE (23:00)
[2019-11-18 03:35] VITALS: BP 120/64
[2019-11-18 03:40] VITALS: BP 120/64
[2019-11-18] MEDS ORDERED: ACETAMINOPHEN 325MG TABLET PO PRN (06:00)
[2019-11-18 08:00] VITALS: BP 105/62
[2019-11-18] MEDS: AZITHROMYCIN 500 MG in DEXT 5% WATER 250 ML IV SCH ×2 (08:00→08:44)
[2019-11-18] MEDS ORDERED: ALBUTEROL (0.083%) 2.5MG/3ML NEB HHN SCH (08:00)
[2019-11-18 12:00] VITALS: BP 103/67
[2019-11-18] MEDS ORDERED: LORAZEPAM 1MG TABLET PO SCH (13:15)
[2019-11-18] MEDS: CEFTRIAXONE 1 G PREMIX 50 ML IV SCH (13:35)
[2019-11-18] MEDS ORDERED: LORAZEPAM 2MG/ML CPJ IV PRN (17:15)
[2019-11-18 20:00] VITALS: BP 112/59
[2019-11-19] VITALS: BP 97/47
[2019-11-19 04:00] VITALS: BP 100/52
[2019-11-19 08:00] VITALS: BP 108/63
[2019-11-19] MEDS: CEFTRIAXONE 1 G PREMIX 50 ML IV SCH (09:43)
[2019-11-19] MEDS: AZITHROMYCIN 500 MG in DEXT 5% WATER 250 ML IV SCH (09:43)
[2019-11-19] MEDS: MULTIVITAMINS,THER W-MINERALS TABLET PO SCH (09:44)
[2019-11-19] MEDS: FOLIC ACID 1MG TABLET PO SCH (09:44)
[2019-11-19] MEDS: THIAMINE HCL 100MG TABLET PO SCH (09:44)
[2019-11-19 12:00] VITALS: BP 120/71
[2019-11-19 16:00] VITALS: BP 111/67
[2019-11-19 20:00] VITALS: BP 109/58
[2019-11-20] VITALS: BP 110/70
[2019-11-20 00:47] LABS: CLARITY URINE CLEAR (CLEAR); COLOR URINE YELLOW (YELLOW); KETONES URINE NEGATIVE (NEGATIVE); LEUKOCYTE ESTERASE URINE NEGATIVE (NEGATIVE); NITRITE URINE NEGATIVE (NEGATIVE); OCCULT BLOOD URINE NEGATIVE (NEGATIVE); PH URINE 6.5 (4.5-8.0); PROTEIN URINE NEGATIVE (NEGATIVE); UROBILINOGEN URINE 0.2 E.U./dL (0.2-1.0)
[2019-11-20 01:01] LABS: *AMPHETAMINES SCREEN URINE NEGATIVE (NEGATIVE); *BARBITURATES SCREEN URINE NEGATIVE (NEGATIVE); *BENZODIAZEPINES SCREEN URINE NEGATIVE (NEGATIVE); *COCAINE SCREEN URINE NEGATIVE (NEGATIVE)
[2019-11-20 01:03] LABS: METHADONE URINE SCREEN NEGATIVE (NEGATIVE)
[2019-11-20 01:04] LABS: CANNABINOID URINE SCREEN PRESUMTIVE POSITIVE (NEGATIVE); OPIATES URINE SCREEN NEGATIVE (NEGATIVE); PHENCYCLIDINE URINE SCREEN NEGATIVE (NEGATIVE)
[2019-11-20 04:00] VITALS: BP 119/58
[2019-11-20 08:00] VITALS: BP_SYST 106; BP_SYST 99; BP_DIAS 62; BP_DIAS 64
[2019-11-20] MEDS: THIAMINE HCL 100MG TABLET PO SCH (08:28)
[2019-11-20] MEDS: FOLIC ACID 1MG TABLET PO SCH (08:28)
[2019-11-20] MEDS: MULTIVITAMINS,THER W-MINERALS TABLET PO SCH (08:28)
[2019-11-20] MEDS ORDERED: AZITHROMYCIN 500 MG TABLET PO SCH (09:00)
== END 2019-11-20 10:02 | disposition left against medical advice (07) | DRG 133 ==
LOC: ER 17:22 → 7EST 23:03 → EDBEDREQ 23:11 → EDBEDREQTM 23:11 → EDBEDREQSVC 23:11 → ENRESERV 11-18 01:55 → 6EST 11-19 14:51
PROVIDERS: ADMIT Internal Medicine; ATTEND Internal Medicine
DX: J96.00 Acute respiratory failure, unspecified whether with hypoxia or hypercapnia (principal); E87.2 Acidosis; J45.901 Unspecified asthma with (acute) exacerbation; D72.821 Monocytosis (symptomatic); D72.810 Lymphocytopenia; F10.10 Alcohol abuse, uncomplicated; F15.90 Other stimulant use, unspecified, uncomplicated; F17.210 Nicotine dependence, cigarettes, uncomplicated; Z20.818 Contact with and (suspected) exposure to other bacterial communicable diseases; Z53.29 Procedure and treatment not carried out because of patient's decision for other reasons; Z60.2 Problems related to living alone; F19.10 Other psychoactive substance abuse, uncomplicated; Z71.41 Alcohol abuse counseling and surveillance of alcoholic; Z79.899 Other long term (current) drug therapy
CPT/HCPCS: 36415; 71045; 80053; 80076; 80305; 81003; 82728; 83605; 83615; 84145; 84484; 85025; 85379; 86140; 87635; 87804; 93005; 96365; 99285; J0456; J0696; J2270; J2543; J3370; J3490; J7030; J7060; U0002

== ENCOUNTER 2019-11-20 15:18 | Emergency (ER) | payer MEDICAID ==
[~2019-11-20] VITALS: Ht 182.9 cm; Wt 88.0 kg
[2019-11-20 16:14] LABS: BASOPHILS % 0.4 % (0.0-2.0); EOSINOPHILS % 0.5 % (0.0-5.0); HEMATOCRIT. 41.9 % (42.0-52.0); HEMOGLOBIN. 14.3 g/dL (14.0-18.0); LYMPHOCYTES % 17.5 % (20.0-50.0); MEAN PLATELET VOLUME 8.2 fl (7.4-10.4); MONOCYTES % 6.7 % (2.0-8.0); NEUTROPHILS % 74.9 % (40.0-76.0); PLATELET 262 x1000/uL (130-400); RED BLOOD CELL COUNT 4.77 mill/uL (4.7-6.1); RED CELL DISTRIBUTION WIDTH 13.6 % (11.6-14.6)
[2019-11-20 16:22] LABS: CHLORIDE 104 mEq/L (98-107)
[2019-11-20 16:25] LABS: ETHANOL BLOOD < 10 mg/dL
[2019-11-20 16:54] VITALS: BP 131/72
== END 2019-11-20 17:01 | disposition home or self-care (01) ==
LOC: ER 15:18
DX: F11.10 Opioid abuse, uncomplicated (principal); R50.9 Fever, unspecified; F29 Unspecified psychosis not due to a substance or known physiological condition; J45.909 Unspecified asthma, uncomplicated
CPT/HCPCS: 36415; 71045; 80053; 80320; 85025; 99284; G0480

== ENCOUNTER 2019-11-26 18:49 | Emergency (ER) | payer MEDICAID | END 2019-11-26 19:18 | disposition left against medical advice (07) | LOC: ER 18:49 | DX: F23 Brief psychotic disorder (principal); Z53.21 Procedure and treatment not carried out due to patient leaving prior to being seen by health care provider ==

== ENCOUNTER 2020-01-29 21:16 | Emergency (ER) | payer MEDICAID ==
[~2020-01-29] VITALS: Ht 172.7 cm; Wt 57.0 kg
[2020-01-29 21:37] VITALS: BP 114/59
[2020-01-29] MEDS ORDERED: IPRATROPIUM BROMIDE (0.02%) 0.5MG/2.5ML NEB HHN STA (21:39)
[2020-01-29] MEDS ORDERED: PREDNISONE 20MG TABLET PO STA (21:39)
[2020-01-29] MEDS ORDERED: ALBUTEROL (0.083%) 2.5MG/3ML NEB HHN STA (21:39)
[2020-01-29] MEDS ORDERED: IBUPROFEN 600MG TABLET PO ONE (21:45)
== END 2020-01-29 22:45 | disposition home or self-care (01) ==
LOC: ER 21:16
DX: J45.901 Unspecified asthma with (acute) exacerbation (principal); R51 Headache
CPT/HCPCS: 94644; 99285; J7512; Z7610

== ENCOUNTER 2020-03-04 18:27 | Emergency (ER) | payer MEDICAID ==
[~2020-03-04] VITALS: Ht 175.3 cm; Wt 64.0 kg
[2020-03-04] MEDS ORDERED: KETOROLAC 30MG/ML VIAL IM ONE (19:00)
[2020-03-04 19:20] VITALS: BP 132/78
== END 2020-03-04 19:27 | disposition home or self-care (01) ==
LOC: ER 18:27
DX: M54.5 Low back pain (principal); J45.909 Unspecified asthma, uncomplicated
CPT/HCPCS: 96372; 99283; J1885

== ENCOUNTER 2020-03-20 19:45 | Emergency (ER) | payer MEDICAID ==
[~2020-03-20] VITALS: Ht 170.2 cm; Wt 55.0 kg
[2020-03-20 22:40] LABS: CLARITY URINE CLEAR (CLEAR); COLOR URINE YELLOW (YELLOW); KETONES URINE NEGATIVE (NEGATIVE); LEUKOCYTE ESTERASE URINE 1+ (NEGATIVE); NITRITE URINE NEGATIVE (NEGATIVE); OCCULT BLOOD URINE NEGATIVE (NEGATIVE); PH URINE 5.5 (4.5-8.0); PROTEIN URINE NEGATIVE (NEGATIVE); SPECIFIC GRAVITY URINE 1.028 (1.005-1.030)
[2020-03-20] MEDS ORDERED: HALOPERIDOL 5MG TABLET PO ONE (22:45)
[2020-03-20 23:09] LABS: *AMPHETAMINES SCREEN URINE PRESUMTIVE POSITIVE (NEGATIVE); *BARBITURATES SCREEN URINE NEGATIVE (NEGATIVE); *BENZODIAZEPINES SCREEN URINE NEGATIVE (NEGATIVE)
[2020-03-20 23:10] LABS: *COCAINE SCREEN URINE NEGATIVE (NEGATIVE); CANNABINOID URINE SCREEN PRESUMTIVE POSITIVE (NEGATIVE); METHADONE URINE SCREEN NEGATIVE (NEGATIVE); OPIATES URINE SCREEN NEGATIVE (NEGATIVE); PHENCYCLIDINE URINE SCREEN NEGATIVE (NEGATIVE)
[2020-03-21] MEDS ORDERED: OLANZAPINE 5MG TABLET PO SCH (00:30)
[2020-03-21 00:41] LABS: BASOPHILS % 1.1 % (0.0-2.0); EOSINOPHILS % 3.5 % (0.0-5.0); HEMATOCRIT. 41.2 % (42.0-52.0); HEMOGLOBIN. 13.9 g/dL (14.0-18.0); LYMPHOCYTES % 38.9 % (20.0-50.0); MEAN CORPUSCULAR HEMOGLOBIN 29.9 pg (28.0-32.0); MEAN CORPUSCULAR VOLUME 88.3 fL (80.0-94.0); MEAN PLATELET VOLUME 7.8 fl (7.4-10.4); MONOCYTES % 9.9 % (2.0-8.0); NEUTROPHILS % 46.6 % (40.0-76.0); PLATELET 232 x1000/uL (130-400); RED BLOOD CELL COUNT 4.67 mill/uL (4.7-6.1)
[2020-03-21] MEDS ORDERED: AMOXICILLIN 500 MG CAPSULE PO ONE (00:45)
[2020-03-21 00:47] LABS: CHLORIDE 103 mEq/L (98-107)
[2020-03-21 00:50] LABS: ETHANOL BLOOD < 10 mg/dL
[2020-03-21] MEDS ORDERED: DIPHENHYDRAMINE 50MG/ML VIAL ONE (18:34)
[2020-03-21] MEDS ORDERED: HALOPERIDOL LACTATE 5MG/ML VIAL IM ONE (18:35)
[2020-03-21] MEDS ORDERED: OLANZAPINE 2.5MG TABLET PO SCH (18:45)
[2020-03-21] MEDS: OLANZAPINE 2.5MG TABLET PO SCH (19:10)
[2020-03-22] MEDS ORDERED: LORAZEPAM 2MG/ML CPJ IM STA (07:58)
[2020-03-22] MEDS ORDERED: HALOPERIDOL LACTATE 5MG/ML VIAL IM ONE (08:00)
[2020-03-22] MEDS: OLANZAPINE 2.5MG TABLET PO SCH (09:00)
[2020-03-22] MEDS: OLANZAPINE 5MG TABLET PO SCH (09:58)
[2020-03-22] MEDS ORDERED: LORAZEPAM 2MG/ML CPJ IM NR (12:30)
[2020-03-22] MEDS ORDERED: ZIPRASIDONE MESYLATE 20MG/VIAL IM NR (12:30)
[2020-03-22] MEDS ORDERED: AMOXICILLIN 500 MG CAPSULE PO ONE (22:00)
[2020-03-23] MEDS ORDERED: LORAZEPAM 2MG/ML CPJ IM ONE ×3 (01:00→19:30)
[2020-03-23] MEDS ORDERED: DIPHENHYDRAMINE 50MG/ML VIAL IM ONE ×2 (01:00→19:30)
[2020-03-23] MEDS ORDERED: LORAZEPAM 2MG/ML CPJ IM STA (07:51)
[2020-03-23] MEDS ORDERED: OLANZAPINE 10 MG/VIAL IM ONE ×2 (08:00→20:00)
[2020-03-23] MEDS: OLANZAPINE 5MG TABLET PO SCH (09:02)
[2020-03-23] MEDS ORDERED: HALOPERIDOL LACTATE 5MG/ML VIAL IM ONE ×2 (19:30→19:32)
[2020-03-23] MEDS ORDERED: LORAZEPAM 2MG/ML CPJ ONE (19:34)
[2020-03-23] MEDS ORDERED: ZIPRASIDONE MESYLATE 20MG/VIAL IM ONE (21:15)
[2020-03-23] MEDS ORDERED: ZIPRASIDONE MESYLATE 20MG/VIAL IM NR (21:30)
[2020-03-24] MEDS: OLANZAPINE 5MG TABLET PO SCH (09:00)
[2020-03-25 07:51] VITALS: BP 120/70
== END 2020-03-25 08:05 | disposition home or self-care (01) ==
LOC: ER 20:01
DX: R44.0 Auditory hallucinations (principal); H92.02 Otalgia, left ear; J45.909 Unspecified asthma, uncomplicated; Z79.899 Other long term (current) drug therapy
CPT/HCPCS: 36415; 80305; 81003; 96372; 99285; J1200; J1630; J2060; J3486; J3490

== ENCOUNTER 2020-05-06 11:56 | Emergency (ER) | payer MEDICAID ==
[~2020-05-06] VITALS: Ht 170.2 cm; Wt 64.0 kg
[2020-05-06] MEDS ORDERED: SODIUM CHLORIDE 0.9% 1,000 ML IV ONE (13:05)
[2020-05-06 13:20] VITALS: BP 102/68
== END 2020-05-06 13:24 | disposition home or self-care (01) ==
LOC: ER 12:01
DX: F15.10 Other stimulant abuse, uncomplicated (principal); F12.10 Cannabis abuse, uncomplicated; J45.909 Unspecified asthma, uncomplicated; F17.290 Nicotine dependence, other tobacco product, uncomplicated; Z79.899 Other long term (current) drug therapy
CPT/HCPCS: 93005; 99283; J7030

== ENCOUNTER 2020-05-20 13:14 | Emergency (ER) | payer MEDICAID ==
[~2020-05-20] VITALS: Ht 177.8 cm; Wt 67.0 kg
[2020-05-20 13:44] VITALS: BP 127/65
== END 2020-05-20 14:44 | disposition left against medical advice (07) ==
LOC: ER 13:26
DX: R63.1 Polydipsia (principal); F15.10 Other stimulant abuse, uncomplicated; F12.10 Cannabis abuse, uncomplicated; T73.0XXA Starvation, initial encounter; X58.XXXA Exposure to other specified factors, initial encounter
CPT/HCPCS: 82962; 93005; 99283

== ENCOUNTER 2020-06-12 21:06 | Emergency (ER) | payer MEDICAID ==
[~2020-06-12] VITALS: Ht 170.2 cm; Wt 56.4 kg
[2020-06-12 21:12] VITALS: BP 117/72
== END 2020-06-12 23:43 | disposition left against medical advice (07) ==
LOC: ER 21:06
DX: Z53.21 Procedure and treatment not carried out due to patient leaving prior to being seen by health care provider (principal)